=== PATIENT | male | born 1985 | race Caucasian/White ===

== ENCOUNTER 2018-10-08 11:04 | Emergency (ER) | payer BC, OTHER ==
[2018-10-08 11:17] VITALS: BP 138/88
[2018-10-08] MEDS ORDERED: LIDOCAINE 2%-EPI 1:100000 20 ML MDV SUBQ STA (12:03)
--- NOTE | 2018-10-08 12:06 | ED Physician Documentation ---
History of Present Illness - Stated complaint Stated Complaint: MALE - Chief complaint Chief Complaint: General - History obtained from History obtained from: Patient - History of Present Illness Timing: Other (Painful hemorrhoid on the left side for about a week which popped a couple of days ago with blood but still is pretty painful. He has had occasional hemorrhoids before.) Review of Systems Constitutional: reports: Reviewed and negative Throat: reports: Reviewed and negative Cardiac: reports: Reviewed and negative Respiratory: reports: Reviewed and negative PD PAST MEDICAL HISTORY - Past Medical History Past Medical History: No - Past Surgical History Past Surgical History: No - Present Medications Home Medications: Ambulatory Orders Medication Instructions Recorded Confirmed Docusate Sodium 250Mg Capsule 250 mg PO DAILY #30 capsule 10/08/18 [Colace 250Mg Capsule] Hydrocodone/Acetaminophen 1 - 2 each PO Q6H PRN #7 tablet 10/08/18 [Hydrocodon-Acetaminophen 5-325] Hydrocortisone Acetate [Anucort-Hc] 25 mg RC TID #20 supp.rect 10/08/18 - Allergies Allergies/Adverse Reactions: Allergies Allergy/AdvReac Type Severity Reaction Status Date / Time No Known Drug Allergies Allergy Verified 10/08/18 11:17 - Social History Does the pt smoke?: No Smoking Status: Never smoker Does the pt drink ETOH?: Yes ETOH Use: Beer, Liquor Substance Use and Type: Marijuana - POLST Patient has POLST: No PD ED PE NORMAL - Vitals Vital signs reviewed: Yes - General General: Alert and oriented X 3, No acute distress - Abdomen Abdomen: Normal bowel sounds, Soft, Non tender - Male Male : Other (On the left side of the rectum there is a large thrombosed hemorrhoid that actually has an overlying defect in the tissue but the clot is still in place.) - Neuro Neuro: Alert and oriented X 3, Normal speech - Psych Psych: Normal mood, Normal affect Results - Vitals Vitals: Vital Signs - 24 hr 10/08/18 11:14 Temperature 36 C L Heart Rate 82 Respiratory 18 Rate Blood Pressure 138/88 H O2 Saturation 100 Oxygen O2 Source Room air Procedures - General procedure General procedure: After verbal informed consents the base of the hemorrhoid was anesthetized with 2% lidocaine with epinephrine and some time past for excellent anesthesia and then a teardrop shaped incision was made and the clot was completely expressed with good effect. Departure - Departure Disposition: 01 Home, Self Care Clinical Impression: Thrombosed hemorrhoids Condition: Good Record reviewed to determine appropriate education?: Yes Instructions: ED Hemorrhoids Follow-Up: Franklin Pandey MD [Provider Admit Priv/Credential] - Prescriptions: Docusate Sodium 250Mg Capsule [Colace 250Mg Capsule] 250 mg PO DAILY #30 capsule Hydrocodone/Acetaminophen [Hydrocodon-Acetaminophen 5-325] 1 - 2 each PO Q6H PRN #7 tablet PRN Reason: pain Hydrocortisone Acetate [Anucort-Hc] 25 mg RC TID #20 supp.rect Comments: Your blood pressure was elevated today on check into the emergency department. This does not mean that you have hypertension, it is a common phenomenon to come to the emergency department and have elevated blood pressure. I recommend that you see your primary care physician within the week to have it rechecked when you are feeling better. Forms: Activity restrictions
== END 2018-10-08 12:46 | disposition home or self-care (01) ==
LOC: ED 11:04
DX: K64.5 Perianal venous thrombosis (principal); R03.0 Elevated blood-pressure reading, without diagnosis of hypertension
CPT/HCPCS: 46083; 99283